=== PATIENT | female | born 1965 | race African-American/Black ===

== ENCOUNTER 2016-11-11 09:30 | Emergency (ER) | payer OTHER ==
[~2016-11-11 09:30] MED LIST: ASPI81TA82 PO; CIPR500T2 PO; CLON-352 PO; FERR324T4 PO; KCL10C PO; NEBI5 PO; TRIBTAB3 PO; ZOFR4TAB3 SL
[2016-11-11 09:32] VITALS: BP 146/92; PULSE 75; RESP 20; TEMP 98.4; O2SAT 100
--- NOTE | 2016-11-11 11:23 | PD ---
HPI Chief Complaint: Exposure to Blood/Body Fluids Time Seen by Provider: 11:07 Travel History International Travel<30 days: No Contact w/Intl Traveler<30days: No Traveled to known affect area: No History of Present Illness HPI 51-year-old female complaining needle stick right third finger. Patient works for hospice. Patient does state with a subcutaneous needle last night. Patient states that the source patient doesn't have any infectious disease, HIV or hepatitis. Patient states that she is not up-to-date with TD booster. Patient states that she has hepatitis B immunization in the past. PFSH Past Medical History Hx Anticoagulant Therapy: Yes (BABY ASA DAILY) Blood Disorders: No Cancer: No Cardiovascular Problems: Yes (HTN) Cerebrovascular Accident: Yes Diabetes: No Diminished Hearing: No Endocrine: No Genitourinary: No Headaches: Yes (WITH ELEVATED BP) Hypertension: Yes Immune Disorder: No Musculoskeletal: No Psychiatric: No Reproductive: No Respiratory: No Tetanus Vaccination: > 5 Years Influenza Vaccination: Yes ?: Not Menopausal: Yes : 4 Para: 3 Miscarriage: 1 Tubal Ligation: Yes Past Surgical History Section: Yes (x3) Gynecologic Surgery: Yes Hysterectomy: Yes Other Surgery: Yes Social History Alcohol Use: Yes (OCCAS) Tobacco Use: No Substance Use: No Allergies-Medications (Allergen,Severity, Reaction): Coded Allergies: Iodine (Verified Allergy, Severe, 11/11/16) Shellfish (Verified Allergy, Severe, Anaphylaxis, 11/11/16) PEANUTS (Verified Allergy, Intermediate, HIVES, 11/11/16) Reported Meds & Prescriptions Reported Meds & Active Scripts Active No Active Prescriptions or Reported Medications Review of Systems General / Constitutional: No: Fever Eyes: No: Visual changes HENT: No: Headaches Cardiovascular: No: Chest Pain or Discomfort Respiratory: No: Shortness of Breath Gastrointestinal: No: Abdominal Pain Genitourinary: No: Dysuria Musculoskeletal: No: Pain Skin: No Rash Neurologic: No: Weakness Psychiatric: No: Depression Endocrine: No: Polydipsia Hematologic/Lymphatic: No: Easy Bruising Physical Exam Narrative GENERAL: Well-nourished, well-developed patient. SKIN: Focused skin assessment warm/dry. HEAD: Normocephalic. EYES: No scleral icterus. No injection or drainage. NECK: Supple, trachea midline. No JVD or lymphadenopathy. CARDIOVASCULAR: Regular rate and rhythm without murmurs, gallops, or rubs. RESPIRATORY: Breath sounds equal bilaterally. No accessory muscle use. GASTROINTESTINAL: Abdomen soft, non-tender, nondistended. MUSCULOSKELETAL: No cyanosis, or edema. BACK: Nontender without obvious deformity. No CVA tenderness. Examination right third finger reveals no obvious redness swelling no active bleeding. Data Data Last Documented VS Vital Signs Date Time Temp Pulse Resp B/P Pulse Ox O2 Delivery O2 Flow Rate FiO2 11/11/16 09:57 74 18 11/11/16 09:32 98.4 146/92 100 Room Air MDM Medical Decision Making Medical Screen Exam Complete: Yes Emergency Medical Condition: Yes Differential Diagnosis Differential diagnosis including needlestick. Narrative Course 51-year-old female with needlestick right third finger. Needle stick protocol started. TD booster given. Patient is to follow-up with [facility]. Diagnosis Primary Impression: Needle stick injury of finger Qualified Code: S61.239A - Needle stick injury of finger, initial encounter Additional Instructions: Follow-up with [facility]. Med/Other Pt SpecificInfo: No Change to Meds Scripts No Active Prescriptions or Reported Meds Disposition: 01 DISCHARGE HOME Condition: Stable Tevin Bravo MD Nov 11, 2016 11:23
[2016-11-11] MEDS ORDERED: TETANUS/DIPHTHERIA TOXOID ADULT 0.5 ML VIAL IM ONE (11:30)
== END 2016-11-11 12:11 | disposition home or self-care (01) ==
LOC: NEPD 09:30
DX: S60.942A Unspecified superficial injury of right middle finger, initial encounter (principal); I10 Essential (primary) hypertension; Z86.73 Personal history of transient ischemic attack (TIA), and cerebral infarction without residual deficits; Z23 Encounter for immunization; W46.0XXA Contact with hypodermic needle, initial encounter; Y99.0 Civilian activity done for income or pay
CPT/HCPCS: 90471; 90714